=== PATIENT | male | born 1975 | race Caucasian/White ===

== ENCOUNTER → 2020-01-20 | Outpatient (CLI) | payer OTHER ==
[~2020-01-20] VITALS: Ht 193 cm; Wt 99.8 kg
[~2020-01-20] MED LIST: PEPCID20 MG; XARELTO20 MG
[2020-01-20 15:13] VITALS: BP 138/84
[2020-01-20 15:20] LABS: HEMATOCRIT 47.9 % (42.0-52.0); HEMOGLOBIN 16.4 gm/dL (14.0-18.0); MCH 33.2 pg (26.0-34.0); MCHC 34.3 g/dL (28.0-37.0); MCV 96.8 fL (80.0-100.0); MPV 8.5 fl. (7.2-11.1); RBC 4.95 mil/uL (4.50-6.00); WBC 5.2 thou/uL (4.0-11.0)
[2020-01-20 15:30] VITALS: BP 138/84
[2020-01-20 15:31] LABS: APTT 34.9 Seconds (25.0-31.3); INR 1.3; PROTIME 13.5 Seconds (9.20-11.50)
[2020-01-20 16:05] LABS: CALCIUM 8.9 mg/dL (8.5-10.1); POTASSIUM 3.9 mmol/L (3.5-5.1)
[2020-01-20 17:40] VITALS: BP 132/74
== END ==
LOC: M.INT 13:38
PROVIDERS: Radiology Diagnostic Radiology; ATTEND Family Medicine
DX: I82.401 Acute embolism and thrombosis of unspecified deep veins of right lower extremity (principal); K21.9 Gastro-esophageal reflux disease without esophagitis; Z98.890 Other specified postprocedural states; Z79.899 Other long term (current) drug therapy; Z79.01 Long term (current) use of anticoagulants; Z87.891 Personal history of nicotine dependence